=== PATIENT | male | born 1990 | race Caucasian/White ===

== ENCOUNTER 2017-04-13 06:37 | Emergency (ER) | payer OTHER ==
[~2017-04-13] VITALS: Ht 182.9 cm; Wt 38.1 kg
[~2017-04-13 06:37] MED LIST: CIPR-255 PO; PRLSR20 PO
[2017-04-13 06:50] VITALS: Ht 182.9 cm; Wt 38.1 kg
[2017-04-13] MEDS ORDERED: KETOROLAC TROMETHAMINE 30 MG/ML VIAL IV STA (07:06)
[2017-04-13] MEDS ORDERED: SODIUM CHLORIDE 0.9% 1000ML 1,000 ML IV STA (07:06)
[2017-04-13] MEDS ORDERED: ACETAMINOPHEN 500 MG TAB PO STA (07:06)
[2017-04-13] MEDS ORDERED: CEFTRIAXONE SOD INJ 1 GM ADDVIAL IV STA (07:12)
--- NOTE | 2017-04-13 07:30 | DIAGNOSTIC IMAGING REPORT ---
SINGLE VIEW CHEST CLINICAL HISTORY: Cough and fever. FINDINGS: An AP, portable, upright chest radiograph is obtained. No prior studies are available for comparison at the time of dictation. The cardiomediastinal silhouette is unremarkable. The lungs and pleural spaces are clear. No pneumothorax is seen. The bony thorax is grossly intact. IMPRESSION: No active disease in the chest. Electronically signed by: Lavon Moser M.D. 04/13/2017 7:29 AM Dictated Date/Time: 04/13/2017 7:28 AM
--- NOTE | 2017-04-13 07:51 | EMERGENCY ROOM VISIT NOTE ---
History Report prepared by Nedra: Alina Parsons Under the Supervision of: Dr. Arianne Warren M.D. First contact with patient: 07:00 Chief Complaint: FLU LIKE SX Stated Complaint: HOT,PAINS IN LEGS,HEAVY BREATHING,TROUBLE REMEMBER History of Present Illness The patient is a 26 year old male who presents to the Emergency Room with complaints of worsening generalized illness beginning about a week ago. The patient reports a mild fever, nausea, aches in legs, shortness of breath, chest pain. He denies any vomiting or diarrhea. The patient's last bowel movement was yesterday which he reports was normal. He states two of his coworkers just tested positive for the flu. He reports feeling "panicky" this morning. The patient denies drinking alcohol last night. The patient has a history of polycystic kidney disease. Source of History: patient Onset: a week ago Position: other (generalized) Quality: other (illness) Timing: worsening Associated Symptoms: + fevers, + chest pain, + SOB, + nausea, No vomiting, No diarrhea Review of Systems See HPI for pertinent positives & negatives. A total of 10 systems reviewed and were otherwise negative. Past Medical & Surgical Medical Problems: (1) Polycystic kidney disease Family History Cancer FH: hypertension Kidney disease Lung disease Social History Smoking Status: Never Smoker Alcohol Use: occasionally Drug Use: none Marital Status: in relationship Occupation Status: employed Current/Historical Medications Scheduled Amoxicillin & Pot Clavulanate (Augmentin 875-125 mg), 875 MG PO BID Allergies Coded Allergies: NSAIDs (Unverified Adverse Reaction, Unknown, Unknown, see comments, ) Has a kidney desiese and can not take Nsaids Physical Exam Vital Signs Date Time Temp Pulse Resp B/P (MAP) Pulse Ox O2 Delivery O2 Flow Rate FiO2 04/13/17 11:48 89 18 123/68 04/13/17 08:39 36.9 100 18 139/73 97 Room Air 04/13/17 08:30 93 04/13/17 06:50 38.1 110 22 125/85 98 Room Air Physical Exam Vital signs reviewed. General: Well-appearing male, in no significant distress. HEENT: No scleral icterus, PERRLA, neck supple. Atraumatic. Bilateral TMs are opaque budging and erythematous. Posterior oropharynx erythematous. Cardiovascular: Regular rate and rhythm, no extra sounds. Pulmonary: Clear to auscultation bilaterally, normal work of breathing. Abdomen: Soft, nontender, nondistended, positive bowel sounds. Musculoskeletal: Atraumatic, no peripheral edema. Neurologic: Patient awake alert and oriented x 3, full strength in all 4 extremities. Cranial nerves 2 through 12 grossly intact. Skin: Warm, dry, no rash Medical Decision & Procedures ER Provider Diagnostic Interpretation: Radiology results as stated below per my review and radiologist interpretation: SINGLE VIEW CHEST FINDINGS: An AP, portable, upright chest radiograph is obtained. No prior studies are available for comparison at the time of dictation. The cardiomediastinal silhouette is unremarkable. The lungs and pleural spaces are clear. No pneumothorax is seen. The bony thorax is grossly intact. IMPRESSION: No active disease in the chest. Electronically signed by: Lavon Moser M.D. Laboratory Results 04/13/17 07:40 Red Blood Count 5.32, Mean Corpuscular Volume 85.7, Mean Corpuscular Hemoglobin 31.4, Mean Corpuscular Hemoglobin Concent 36.6, Mean Platelet Volume 10.5, Neutrophils (%) (Auto) 73.9, Lymphocytes (%) (Auto) 14.5, Monocytes (%) (Auto) 10.6, Eosinophils (%) (Auto) 0.6, Basophils (%) (Auto) 0.2, Neutrophils # (Auto ) 4.89, Lymphocytes # (Auto) 0.96, Monocytes # (Auto) 0.70, Eosinophils # (Auto ) 0.04, Basophils # (Auto) 0.01 04/13/17 07:40 Test 04/13/17 07:35 04/13/17 07:40 04/13/17 08:20 Influenza Type A Antigen Neg for Influ A (NEG) Influenza Type B Antigen Neg for Influ B (NEG) White Blood Count 6.61 K/uL (4.8-10.8) Red Blood Count 5.32 M/uL (4.7-6.1) Hemoglobin 16.7 g/dL (14.0-18.0) Hematocrit 45.6 % (42-52) Mean Corpuscular Volume 85.7 fL (80-100) Mean Corpuscular Hemoglobin 31.4 pg (25-34) Mean Corpuscular Hemoglobin Concent 36.6 g/dl (32-36) Platelet Count 134 K/uL (130-400) Mean Platelet Volume 10.5 fL (7.4-10.4) Neutrophils (%) (Auto) 73.9 % Lymphocytes (%) (Auto) 14.5 % Monocytes (%) (Auto) 10.6 % Eosinophils (%) (Auto) 0.6 % Basophils (%) (Auto) 0.2 % Neutrophils # (Auto) 4.89 K/uL (1.4-6.5) Lymphocytes # (Auto) 0.96 K/uL (1.2-3.4) Monocytes # (Auto) 0.70 K/uL (0.11-0.59) Eosinophils # (Auto) 0.04 K/uL (0-0.5) Basophils # (Auto) 0.01 K/uL (0-0.2) RDW Standard Deviation 38.7 fL (36.4-46.3) RDW Coefficient of Variation 12.4 % (11.5-14.5) Immature Granulocyte % (Auto) 0.2 % Immature Granulocyte # (Auto) 0.01 K/uL (0.00-0.02) Anion Gap 10.0 mmol/L (3-11) Est Creatinine Clear Calc Drug Dose 57.0 ml/min Estimated GFR () 112.7 Estimated GFR (Non- 97.3 BUN/Creatinine Ratio 7.1 (10-20) Calcium Level 9.4 mg/dl (8.5-10.1) Total Bilirubin 0.6 mg/dl (0.2-1) Direct Bilirubin 0.1 mg/dl (0-0.2) Aspartate Amino Transf (AST/SGOT) 21 U/L (15-37) Alanine Aminotransferase (ALT/SGPT) 58 U/L (12-78) Alkaline Phosphatase 57 U/L (45-117) Total Creatine Kinase 58 U/L (39-308) Total Protein 7.4 gm/dl (6.4-8.2) Albumin 4.1 gm/dl (3.4-5.0) Urine Color YELLOW Urine Appearance CLEAR (CLEAR) Urine pH >= 9.0 (4.5-7.5) Urine Specific [place] 1.016 (1.000-1.030) Urine Protein NEG (NEG) Urine Glucose (UA) NEG (NEG) Urine Ketones NEG (NEG) Urine Occult Blood NEG (NEG) Urine Nitrite NEG (NEG) Urine Bilirubin NEG (NEG) Urine Urobilinogen NEG (NEG) Urine Leukocyte Esterase NEG (NEG) Laboratory results per my review. Medications Administered Medications (Trade) Dose Ordered Sig/Valerie Route Start Time Stop Time Status Last Admin Dose Admin Acetaminophen (Tylenol Tab) 1,000 mg NOW STAT PO 04/13/17 07:06 04/13/17 07:08 DC 04/13/17 07:40 1,000 MG Ketorolac Tromethamine (Toradol Inj) 30 mg NOW STAT IV 04/13/17 07:06 04/13/17 07:08 DC 04/13/17 07:40 30 MG Sodium Chloride 1,000 ml @ 999 mls/hr Q1H1M STAT IV 04/13/17 07:06 04/13/17 08:06 DC 04/13/17 07:40 999 MLS/HR Ceftriaxone Sodium (Rocephin Inj) 1 gm NOW STAT IV 04/13/17 07:12 04/13/17 07:13 DC 04/13/17 07:40 1 GM ECG Indication: SOB/dyspnea Rate (beats per minute): 95 Rhythm: sinus with SA Findings: no acute ischemic change, no ectopy Change: EKG interpreted by me. ED Course 0705: Past medical records reviewed. The patient was evaluated in room A11B. A complete history and physical examination was performed. 0706: Ordered Sodium Chloride 1000 ml @ 999 mls/hr IV, Toradol Inj 30 mg IV, Acetaminophen 1000 mg PO. 0712: Ordered Rocephin Inj 1 gm IV. 1141: I updated the patient on his test results. 1145: Upon reevaluation, the patient appeared to have improvement of his symptoms. I discussed findings with him. He verbalized agreement of the treatment plan. The patient was discharged home. 1252: Attempted to contact patient to update him on his bilateral otitis media. I will send a prescription to his pharmacy. Medical Decision Differential diagnosis: Influenza, other viral illness, pneumonia, urinary tract infection, metabolic abnormality, medication effect, cellulitis, meningitis, intra-abdominal source. This patient was evaluated and appeared to be in some discomfort. Physical examination is consistent with a bilateral otitis media. Influenza antigen swab is negative. Patient was given oral Tylenol and IV Toradol. He was hydrated with normal saline solution. Patient was given 1 g of IV ceftriaxone. Laboratory work is fairly unrevealing. I do suspect an underlying influenza infection. A prescription for Augmentin 875 twice a day was sent to the patient 's pharmacy. He was advised to use Tylenol and ibuprofen as needed for pain and fever. He will drink plenty of clear fluids and follow-up with his PCP this week. The patient will return to the emergency department for worsening of symptoms or any medical concerns. Medication Reconcilliation Current Medication List: was personally reviewed by me Blood Pressure Screening Patient's blood pressure: Normal blood pressure Impression Primary Impression: Influenza-like symptoms Additional Impression: Bilateral otitis media with effusion Scribe Attestation The scribe's documentation has been prepared under my direction and personally reviewed by me in its entirety. I confirm that the note above accurately reflects all work, treatment, procedures, and medical decision making performed by me. Departure Information Dispostion Home / Self-Care Prescriptions Amoxicillin & Pot Clavulanate (Augmentin 875-125 mg) 1 Tab Tab 875 MG PO BID for 10 Days, #20 TAB Prov: Arianne Warren M.D. 04/13/17 Referrals Demario Delaney, D.ORosie (PCP) Forms HOME CARE DOCUMENTATION FORM, IMPORTANT VISIT INFORMATION Patient Instructions My [facility] Additional Instructions Diagnosis: Flulike symptoms, bilateral otitis media Augmentin 875 mg twice a day for 10 days. Tylenol 650 mg every 6 hours as needed for pain or fever. Ibuprofen 600 mg every 6 hours as needed for pain or fever. Please drink plenty of clear fluids. Follow-up with your physician this week for reevaluation. Return to the ER for worsening of symptoms or any medical concerns. Problem Qualifiers
[2017-04-13 07:54] LABS: BASO % 0.2 %; BASO ABS # 0.01 K/uL (0-0.2); EOS % 0.6 %; EOS ABS # 0.04 K/uL (0-0.5); HEMATOCRIT 45.6 % (42-52); HEMOGLOBIN 16.7 g/dL (14.0-18.0); IG# 0.01 K/uL (0.00-0.02); LYMPH % 14.5 %; LYMPH ABS # 0.96 K/uL (1.2-3.4); MEAN CELL VOLUME 85.7 fL (80-100); MEAN CORPUSCULAR HEMOGLOBIN 31.4 pg (25-34); MEAN CORPUSCULAR HGB CONC 36.6 g/dl (32-36); MEAN PLATELET VOLUME 10.5 fL (7.4-10.4); MONO % 10.6 %; NEUT % 73.9 %; NEUT ABS # 4.89 K/uL (1.4-6.5); PLATELET COUNT 134 K/uL (130-400); RED CELL DISTRIBUTION WIDTH CV 12.4 % (11.5-14.5); RED CELL DISTRIBUTION WIDTH SD 38.7 fL (36.4-46.3); WHITE BLOOD COUNT 6.61 K/uL (4.8-10.8)
[2017-04-13 08:10] LABS: ALBUMIN 4.1 gm/dl (3.4-5.0); CALCIUM 9.4 mg/dl (8.5-10.1); CREATININE 1.04 mg/dl (0.60-1.40); POTASSIUM 3.6 mmol/L (3.5-5.1)
[2017-04-13 08:13] LABS: TOTAL PROTEIN 7.4 gm/dl (6.4-8.2)
[2017-04-13 08:34] LABS: INFLUENZA B ANTIGEN Neg for Influ B (NEG)
[2017-04-13 08:39] VITALS: TEMP 36.9; O2SAT 97
[2017-04-13 11:48] VITALS: BP 123/68; PULSE 89
[2017-04-13] MEDS ORDERED: AMOX875T PO (12:52)
== END 2017-04-13 11:50 | disposition home or self-care (01) ==
LOC: C.EDB 06:39 → C.EDA 11:50
DX: R50.9 Fever, unspecified (principal); R06.02 Shortness of breath; R11.0 Nausea; H65.93 Unspecified nonsuppurative otitis media, bilateral; Q61.3 Polycystic kidney, unspecified; Z80.9 Family history of malignant neoplasm, unspecified; Z82.49 Family history of ischemic heart disease and other diseases of the circulatory system; Z84.1 Family history of disorders of kidney and ureter